=== PATIENT | female | born 1940 | race Caucasian/White ===

== ENCOUNTER 2016-06-17 21:22 | Emergency (ER) | payer MEDICARE ==
[~2016-06-17] VITALS: Ht 160 cm; Wt 62.6 kg
[2016-06-17] MEDS ORDERED: ONDANSETRON HCL/PF 4 MG/2 ML VIAL IVP ONE (22:30)
[2016-06-17] MEDS ORDERED: HYDROMORPHONE INJ 2 MG/ML DISP.SYRIN IV ONE (22:30)
[2016-06-17] MEDS ORDERED: HYDROMORPHONE 1 MG/1 ML DISP.SYRIN ONE (22:54)
[2016-06-17] MEDS ORDERED: ONDANSETRON HCL/PF 4 MG/2 ML VIAL ONE (22:54)
[2016-06-17 23:37] LABS: BASOPHILS % (AUTO) 0.3 % (0.0-2.0); DIFF TOTAL % 100 %; EOSINOPHILS # (AUTO) 0.3 /CMM (0.0-0.7); EOSINOPHILS % (AUTO) 3.7 % (0.0-6.0); HEMATOCRIT 32 % (33-45); HEMOGLOBIN 10.6 g/dL (11.5-14.8); LYMPHOCYTES # (AUTO) 1.1 /CMM (0.8-4.8); LYMPHOCYTES % (AUTO) 15.3 % (20.0-44.0); MEAN CORPUSCULAR HEMOGLOBIN 30 PG (26.0-33.0); MEAN CORPUSCULAR HGB CONC 34 g/dl (31.0-36.0); MEAN CORPUSCULAR VOLUME 89 fL (82-100); MONOCYTES # (AUTO) 0.5 /CMM (0.1-1.30); MONOCYTES % (AUTO) 7.7 % (2.0-12.0); PLATELET COUNT (AUTO) 245 /CMM (150-450); RED BLOOD CELL COUNT(AUTO) 3.55 MIL/uL (4.0-5.2); WHITE BLOOD COUNT (AUTO) 6.9 K/uL (4.3-11.0)
[2016-06-17 23:45] LABS: CALCIUM, SERUM 8.6 mg/dL (8.5-10.1); CREATININE 0.9 mg/dL (0.6-1.3); POTASSIUM 3.7 mmol/L (3.5-5.1)
[2016-06-17 23:50] LABS: ALBUMIN 3.6 g/dL (3.4-5.0); BILIRUBIN,TOTAL 0.2 mg/dL (0.2-1.0); INDIRECT BILIRUBIN 0.2 mg/dL (0.0-1.1); INR 1.01 (0.87-1.13); PROTHROMBIN TIME 10.9 SECS (9.5-12.7); TOTAL PROTEIN, SERUM 6.6 g/dL (6.4-8.2)
[2016-06-18 00:35] VITALS: BP 157/84
== END 2016-06-18 00:36 | disposition home or self-care (01) ==
LOC: ER 21:26
DX: S09.90XA Unspecified injury of head, initial encounter (principal); S00.12XA Contusion of left eyelid and periocular area, initial encounter; I10 Essential (primary) hypertension; K21.9 Gastro-esophageal reflux disease without esophagitis; W18.39XA Other fall on same level, initial encounter; Y93.89 Activity, other specified; Y92.89 Other specified places as the place of occurrence of the external cause; Y99.8 Other external cause status
CPT/HCPCS: 36415; 70450; 70486; 71010; 72125; 72170; 80048; 80076; 85025; 85730; 96374; 96375; 99285; A4606; J1170; J2405; Z7610

== ENCOUNTER 2022-03-02 22:24 | Emergency (ER) | payer MEDICARE, OTHER ==
[~2022-03-02] VITALS: Ht 160 cm; Wt 61.2 kg
[2022-03-02] MEDS ORDERED: MORPHINE SULFATE INJ 4 MG/ML DISP.SYRIN ONE (23:18)
--- NOTE | 2022-03-02 23:20 | NUR ---
BIB DAUGHTER FOR C/O FLANK PAIN. PT ENDORSES SHE BELIEVES SHE HAD A UTI LAST WEEK AND DID NOT GET TREATED AND TOOK OVER THE COUNTER AZO WHICH HELPED CONTROL SYMPTOMS. HOWEVER, PAIN HAS BEEN PROGRESSIVELY WORSTENEDING AND NOW SPREADS UP THE FLANK. DENIES ANY FEVER. PT IS AWAKE AND ALERT X4 BREATHING UNLABORED. PLACED ON MONITOR AND NOTED HYPERTENSIVE IN 200S SYSTOLIC STATES 10/10 PAIN. MD WAS AT BEDSIDE FOR EVAL.
--- NOTE | 2022-03-02 23:27 | NUR ---
20G IV ESTABLISHED AT [facility]. BLOOD DRAWN AND SENT TO LAB.
[2022-03-02] MEDS ORDERED: MORPHINE SULFATE INJ 2 MG/ML DISP.SYRIN IV ONE (23:30)
--- NOTE | 2022-03-02 23:30 | NUR ---
URINE COLLECTED AND SENT TO LAB
[2022-03-02 23:35] LABS: BILIRUBIN,URINE NEGATIVE (NEGATIVE); COLOR,URINE YELLOW (YELLOW); LEUKOCYTE ESTERASE ,URINE NEGATIVE (NEGATIVE); NITRITE, URINE NEGATIVE (NEGATIVE); PROTEIN,URINE 100 mg/dl (NEGATIVE); UGLUCOSE 100 MG/DL mg/dL (NEGATIVE); UROBILINOGEN,URINE 0.2 EU/dL (0.2)
[2022-03-02 23:38] LABS: BASOPHILS % (AUTO) 0.5 % (0.0-2.0); EOSINOPHILS % (AUTO) 1.7 % (0.0-6.0); HEMATOCRIT 38 % (33-45); HEMOGLOBIN 12.5 g/dL (11.5-14.8); LYMPHOCYTES # (AUTO) 0.7 K/uL (0.8-4.8); LYMPHOCYTES % (AUTO) 7.3 % (20.0-44.0); MEAN CORPUSCULAR HGB CONC 33 g/dl (31.0-36.0); MEAN CORPUSCULAR VOLUME 85 fL (82-100); MONOCYTES # (AUTO) 0.4 K/uL (0.1-1.30); NEUTROPHILS # (AUTO) 7.7 K/uL (1.8-8.9); NEUTROPHILS % (AUTO) 85.5 % (43.0-81.0); PLATELET COUNT (AUTO) 313 K/uL (150-450)
--- NOTE | 2022-03-02 23:46 | NUR ---
PT BEING TRANSPORTED TO CT VIA [facility]
[2022-03-03 00:10] LABS: CALCIUM, SERUM 9.4 mg/dL (8.5-10.1); CARBON DIOXIDE 30 mmol/L (21-32); CHLORIDE 90 mmol/L (98-107); CREATININE 0.9 mg/dL (0.6-1.3); GLUCOSE 134 mg/dL (74-106); POTASSIUM 3.7 mmol/L (3.5-5.1); SODIUM SERUM 121 mmol/L (136-145); UREA NITROGEN, BLOOD 12 mg/dL (7-18)
[2022-03-03 00:15] LABS: ALANINE AMINOTRANSFERASE 22 U/L (12-78); ALBUMIN 4.4 g/dL (3.4-5.0); ALKALINE PHOSPHATASE 113 U/L (46-116); ASPARTATE AMINOTRANSFERASE 22 U/L (15-37); BILIRUBIN,DIRECT 0.1 mg/dL (0.0-0.2); BILIRUBIN,TOTAL 0.6 mg/dL (0.2-1.0); LIPASE 110 U/L (73-393); TOTAL PROTEIN, SERUM 8.2 g/dL (6.4-8.2)
[2022-03-03] MEDS ORDERED: IV NS 0.9% 1,000 ML BAG IV ONE (01:00)
[2022-03-03 01:58] LABS: THYROID STIMULATING HORMONE 0.896 uIU/mL (0.358-3.74)
[2022-03-03] MEDS ORDERED: ACETAMINOPHEN ES 500 MG TABLET ONE ×2 (02:19→02:22)
[2022-03-03] MEDS ORDERED: MORPHINE SULFATE INJ 4 MG/ML DISP.SYRIN ONE (02:25)
[2022-03-03] MEDS ORDERED: ACETAMINOPHEN ES 500 MG TABLET PO ONE (02:30)
[2022-03-03] MEDS ORDERED: MORPHINE SULFATE INJ 2 MG/ML DISP.SYRIN IV ONE (02:30)
[2022-03-03] MEDS ORDERED: METH-649 PO (03:18)
[2022-03-03 03:30] VITALS: BP 202/116
[2022-03-03 03:44] LABS: CREATININE, URINE < 13.0 MG/DL (30.0-125.0); URINE SODIUM, RANDOM 135 mmol/l (40-220)
== END 2022-03-03 03:31 | disposition left against medical advice (07) ==
LOC: ER 22:28
DX: E87.1 Hypo-osmolality and hyponatremia (principal); R10.9 Unspecified abdominal pain; I10 Essential (primary) hypertension; M79.7 Fibromyalgia; K21.9 Gastro-esophageal reflux disease without esophagitis; Z79.899 Other long term (current) drug therapy
CPT/HCPCS: 99285; 74176; 96374; 93005; 85025; 80048; 83690; 80076; 81003; 36415 ×2; 84484; 96361; 83935; 96376; 82570; 84300; 84443; 87081; J2270 ×2; J7030